=== PATIENT | female | born 1985 | race Caucasian/White ===

== ENCOUNTER 2019-04-14 11:30 | Emergency (ER) | payer OTHER ==
[2019-04-14 12:25] VITALS: BP 111/75
--- NOTE | 2019-04-14 12:46 | UC ---
Respiratory Complaint HPI - HPI Summary HPI Summary: Patient presents to urgent care reporting 1 week of fevers body aches cough and fatigue. No nausea vomiting. No shortness of breath. Cough has phlegm but doesn't come up. Patient has used [id number] medications. 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 Patient is not immunocompromised. She did get her flu vaccine this year. She is not . Patient's medications is entered in the EMR by the triage nurse were reviewed. - History of Current Complaint Chief Complaint: UCGeneralIllness Stated Complaint: COUGH Time Seen by Provider: 04/14/19 12:32 Hx Obtained From: Patient Hx Last Menstrual Period: 04/04/19 ?: No Onset/Duration: Gradual Onset Severity Initially: Mild Severity Currently: Mild Pain Intensity: 1 - Allergies/Home Medications Allergies/Adverse Reactions: Allergies Allergy/AdvReac Type Severity Reaction Status Date / Time No Known Allergies Allergy Verified 04/14/19 12:18 Home Medications: Home Medications Guaifenesin/Dextromethorphan [Robitussin Cough & Chest 20-400 mg/20Ml] 1 liq PO ONCE 04/14/19 [History Confirmed 04/14/19] PMH/Surg Hx/FS Hx/Imm Hx Previously Healthy: Yes - Surgical History Surgical History: Yes Surgery Procedure, Year, and Place: appendectomy - Family History Known Family History: Positive: Non-Contributory - Social History Occupation: Employed Full-time Lives: With Family Alcohol Use: Occasionally Substance Use Type: None Smoking Status (MU): Never Smoked Tobacco Review of Systems All Other Systems Reviewed And Are Negative: Yes Constitutional: Positive: Fever Skin: Positive: Negative ENT: Positive: Ear Ache, Sinus Congestion Respiratory: Positive: Cough Cardiovascular: Positive: Negative Gastrointestinal: Positive: Negative Genitourinary: Positive: Negative Physical Exam - Summary Physical Exam Summary: Vital Signs Reviewed: Yes A+Ox3, no distress Eyes: Conjunctiva Clear, LUDMILA. EOM intact and full ENT: Hearing grossly normal TM x 2 clear, turbinates inflammed and boggy, + PND < mmoist, uvula midline, no exudate, no erythema Neck: Positive: Supple Respiratory: Positive: No respiratory distress, No accessory muscle use + coarse cough, few scattered wheeze, rhonci right base Cardiovascular: RRR nl s1, s2 no m/r CBT <2 sec abd soft + BS nt/nd no guarding, no distension Musculoskeletal Exam: BARRIGA x 4 without difficulty Strength Intact, ROM Intact Neurological: Positive: Alert, + sensation throughout Psychological: Positive: Normal Response To examiner Skin: Positive: no rash, no ecchymosis Triage Information Reviewed: Yes Vital Signs: Initial Vital Signs Temp 100.2 F 04/14/19 12:19 Pulse 96 04/14/19 12:19 Resp 18 04/14/19 12:19 BP 111/75 04/14/19 12:19 Pulse Ox 98 04/14/19 12:19 Diagnostics - Radiology No standard instances Radiology Interpretation Completed By: Radiologist - Patient Name: RODRÍGUEZ CARLIN Medical Record#: [id number] Ordering Physician: Saskia Samano MD Acct.#: [id number] : 1985 Age: 33 Sex: F Location: [facility] Exam Date: 04/14/19 1252 ADM Status: REG ER Order Information: CHEST PA & LAT 2 VWS Accession Number : [id number] CPT: 58824 HISTORY: cough, wheeze, fever COMPARISONS: None relevant available at the time of dictation. VIEWS: 4: Frontal dual-energy and lateral views of the chest. FINDINGS: CARDIOMEDIASTINAL SILHOUETTE: The cardiomediastinal silhouette is normal. LUZ: The luz are normal. PLEURA: The costophrenic angles are sharp. No pleural abnormalities are noted. LUNG PARENCHYMA: There is faint patchy alveolar opacification of the periphery of the right upper lobe. ABDOMEN : The upper abdomen is clear. There is no subphrenic gas. BONES AND SOFT TISSUES : No bone or soft tissue abnormalities are noted. OTHER: None. IMPRESSION: PATCHY CONSOLIDATION OF THE RIGHT UPPER LOBE. <Electronically signed by Karthikeyan Rosario MD in [place]> 04/14/19 1311 Dictated By: Karthikeyan Rosario MD Dictated Date/Time: 1310 Transcribed Date/Time: 04/14/19 131 Copy to: CC:Saskia Samano MD ; No Primary Care Phys,NOPCP Imaging - [facility] Imaging - [facility] Imaging - [facility] [id number] [place] [id number] [place] [id number] ph ([phone]) ph ([phone]) ph ([phone]) This report is only to be considered final once signed by the Provider(s) as displayed in the "<Electronically Signed by > " field (s). Absence of a signature indicates the report is in a draft status and still needs to be finalized. In the event this document was created by someone other than the signing Provider, the individual initiating the document will be listed in the "Entered by:" or "Dictated by:" sykes. 1 of 1 Re-Evaluation - Re-Evaluation First Eval Change: Improved - Patient states she feel better following the neb. A chest x- ray that shows pneumonia. We'll start antibiotics. Hydrate. Motrin. Secretion Precaution Return Precaution. Agreement with Plan. Respiratory Course/Dx - Course Course Of Treatment: Patient presents to urgent care for evaluation of progressive congestion sore throat and cough for the last week. Patient reports intermittent fevers. Patient has taken her medication but still feels fatigued. On exam vital signs are stable. Patient with coarse cough scattered wheeze rhonchi on the right.Nose with nasal congestion postnasal drip. We'll do chest x-ray check for fluid and reassess. - Differential Dx/Diagnosis Provider Diagnosis: Pneumonia Discharge ED - Sign-Out/Discharge Documenting (check all that apply): Patient Departure All imaging exams completed and their final reports reviewed: Yes - Discharge Plan Condition: Stable Disposition: HOME Prescriptions: Albuterol HFA INHALER* [Ventolin HFA Inhaler*] 2 puff INH Q4H PRN #1 mdi PRN Reason: wheeze DOXYcycline CAP(*) [DOXYcycline 100MG CAP(*)] 100 mg PO BID #20 cap Inhaler, Assist Devices [Aerochamber Mv] 1 each PO Q4HR #1 spacer Patient Education Materials: Pneumonia (ED) Referrals: [facility] [Provider Group] [facility] [Outside] No Primary Care Phys,NOPCP [Primary Care Provider] - Additional Instructions: -Take antibiotics exactly as prescribed until gone -Use your albuterol puffer - 2 puffs every 4 hours for the next 2 days - then as needed -Stay well hydrated - avoid excess caffeine and all alcohol - eat regular, healthy meals - - humidify the air in the room where you sleep - boil water, run a hot steam shower, vaporizer, cups of water by heat register - okay to take over the counter decongestant and cough medication -- These infections are spread by secretions - do NOT share eating or drinking utensils - clean items you share with other people such as cell phones, computer mouse, TV remote, computer tablets,etc.. Once you have been antibiotics for 2 days, change your toothbrush and your pillowcase. -Contact your doctor to arrange a follow-up appointment this week. Call your doctor, return here or go to the emergency department with any questions or concerns - Billing Disposition and Condition Condition: STABLE Disposition: Home
[2019-04-14] MEDS ORDERED: Albuterol/Ipratropium NEB.SOL* Albuterol 2.5 MG/Ipratropium 0.5 MG 3 ML INH ONE (12:52)
[2019-04-14 12:54] LABS: Influenza A Molecular NEGATIVE (Negative); Influenza B Molecular NEGATIVE (Negative)
== END 2019-04-14 13:45 | disposition home or self-care (01) ==
LOC: UCEAST 11:30
DX: J18.9 Pneumonia, unspecified organism (principal)
CPT/HCPCS: 71046; 99212; A9270-GY; G0463